=== PATIENT | female | born 1935 | race Caucasian/White ===

== ENCOUNTER 2017-01-02 16:55 | Emergency (ER) | payer OTHER ==
[~2017-01-02] VITALS: Ht 162.6 cm; Wt 51.0 kg
[~2017-01-02 16:55] MED LIST: ASPIRIN81 M2 PO; DIPROSONE 0.05%20 ML LEFT EAR; FISH OIL 1,2001 EAC3 PO; FOLIC ACID1 MG PO; HYDROCODON-ACE1 EAC7 PO; ILOTYCIN1 GM BOTH EYES; LANOXIN,DIG0.0625 MG PO; LANOXIN125 MCG PO; LIPO-FLAVONO1 TABLET PO; LORAZEPAM0.5 MG PO; Levaquin PO; METHOTREXATE2.5 MG PO; MULTIVITAMIN1 EAC2 PO; NITROFURANTOIN100 MG PO; NORVASC5 MG PO; PERCOCET 5/31 TABLET PO; PREDNISONE5 MG PO; TOPROL XL25 MG PO; TOPROL XL50 MG PO; TOPROL XL6.25 MG PO; TRAMADOL HCL50 MG PO; TYLENOL EXTRA500 MG PO; Ultram PO; VITAMIN D250000 UNIT PO; ZANAFLEX4 M1 PO
[2017-01-02 17:30] LABS: HEMATOCRIT 36.9 % (36.0-46.0); MCHC 34.4 G/DL (30.0-36.0); MCV 95.8 FL (83-99); MEAN PLAT.VOLUME 8.5 uM^3 (9.5-12.4); PLATELET COUNT 281 K/uL (156-360); RBC DIS.WIDTH-CV 12.6 % (11.8-14.6); RBC DIS.WIDTH-SD 42.1 % (39-53); RED BLOOD COUNT 3.85 M/uL (3.80-5.20)
[2017-01-02 17:39] LABS: CHLORIDE 108 mEq/L (99-109); POTASSIUM 3.9 mEq/L (3.7-5.4); SODIUM 143 mEq/L (136-147)
[2017-01-02 17:41] LABS: GLUCOSE 103 mg/dL (70-99)
[2017-01-02 17:42] LABS: ANION GAP 10 MEQ/L (2-14)
[2017-01-02 17:45] LABS: GFR ESTIMATE (CALCULATED) > 59 mL/min/
[2017-01-02 17:46] LABS: UREA NITROGEN (BUN) 26 mg/dL (9-23)
[2017-01-02 17:51] LABS: TROP-I INTERPRETATION NEGATIVE; TROPONIN-I < 0.01 ng/mL (0.0-0.30)
[2017-01-02 19:44] VITALS: BP 136/77
== END 2017-01-02 19:57 | disposition home or self-care (01) ==
LOC: EME 16:55
PROVIDERS: Nurse Practitioner Family
DX: M17.12 Unilateral primary osteoarthritis, left knee (principal); M79.89 Other specified soft tissue disorders; Z88.1 Allergy status to other antibiotic agents; Z88.0 Allergy status to penicillin
CPT/HCPCS: 80048; 84484; 85027; 93005; 93971; 99281; 99284

== ENCOUNTER 2017-10-15 18:19 | Observation (INO) | payer OTHER ==
[~2017-10-15] VITALS: Ht 162.6 cm; Wt 50.5 kg
[2017-10-15 19:09] LABS: BASOPHIL COUNT 0.1 K/uL (0-0.1); EOSINOPHIL (%) 0.1 % (0-5); HEMATOCRIT 37.1 % (36.0-46.0); IMMATURE GRANULOCYTE (%) 0.4 % (0.0-0.7); IMMATURE GRANULOCYTE COUNT 0.1 K/uL; INSTRUMENT ABS NEUTROPHIL CT 15.1 K/uL; LYMPHOCYTE COUNT 1.5 K/uL (1.0-2.8); MCH 33.6 PG (29.0-34.0); MCHC 35.3 G/DL (30.0-36.0); MCV 95.1 FL (83-99); MEAN PLAT.VOLUME 8.1 uM^3 (9.5-12.4); MONOCYTE (%) 6.6 % (3-12); MONOCYTE COUNT 1.2 K/uL (0-0.8); NEUTROPHIL (%) 84.4 % (45-76); NEUTROPHIL COUNT 15.1 K/uL (1.8-6.4); PLATELET COUNT 258 K/uL (156-360); RBC DIS.WIDTH-SD 44.3 % (39-53); WHITE BLOOD COUNT 17.9 K/uL (4.1-10.2)
[2017-10-15 19:27] LABS: CHLORIDE 104 mEq/L (99-109); POTASSIUM 3.6 mEq/L (3.7-5.4); SODIUM 138 mEq/L (136-147)
[2017-10-15 19:29] LABS: GLUCOSE 113 mg/dL (70-99)
[2017-10-15 19:30] LABS: ANION GAP 10 MEQ/L (2-14)
[2017-10-15 19:33] LABS: GFR ESTIMATE (CALCULATED) > 59 mL/min/
[2017-10-15 19:34] LABS: UREA NITROGEN (BUN) 20 mg/dL (9-23)
[2017-10-15 21:38] LABS: CREATINE KINASE 281 IU/L (1-294); TOTAL CK 281 IU/L (1-294)
[2017-10-15 21:44] LABS: CK-MB 1.5 ng/mL (0.0-4.9)
[2017-10-15 22:34] LABS: ADD MIUA? NO; BILIRUBIN NEGATIVE; BLOOD NEGATIVE; COLOR YELLOW ((YELLOW)); GLUCOSE (STRIP) NEGATIVE; KETONES 20; LEUKOCYTES NEGATIVE; NITRITE NEGATIVE; PROTEIN (STRIP) NEGATIVE; SPECIFIC GRAVITY 1.014 (1.000-1.030); UROBILINOGEN 0.2 MG/DL (0.2-1.0)
[2017-10-16] MEDS ORDERED: KLOR-CON SPRINK8 MEQ PO (00:04)
[2017-10-16] MEDS ORDERED: IMODIUM PO (00:16)
[2017-10-16] MEDS ORDERED: SALINE NASAL14.1 GM TP (00:29)
[2017-10-16] MEDS ORDERED: LACTAID ULT9000 UNIT PO (00:29)
[2017-10-16] MEDS ORDERED: LIPO-FLAVONO1 TABLET PO (00:42)
[2017-10-16 04:31] VITALS: BP 93/53
[2017-10-16 05:30] VITALS: BP 97/56
[2017-10-16 06:10] LABS: TROP-I INTERPRETATION NEGATIVE; TROPONIN-I < 0.01 ng/mL (0.0-0.30)
[2017-10-16 07:51] VITALS: BP 106/58
[2017-10-16 12:17] VITALS: BP 92/55
[2017-10-16 13:15] LABS: TROP-I INTERPRETATION NEGATIVE; TROPONIN-I < 0.01 ng/mL (0.0-0.30)
[2017-10-16] MEDS ORDERED: LIDODERM 5% P1 PATCH TD (15:36)
[2017-10-16] MEDS ORDERED: TRAMADOL HCL50 MG PO (15:37)
[2017-10-16 17:25] VITALS: BP 103/61
== END 2017-10-16 17:26 | disposition home or self-care (01) ==
LOC: EME 18:19 → 5WEST 10-16 02:10 → EDOF 10-16 02:10 → ENRESERV 10-16 02:17 → 5WEST 10-16 03:38
PROVIDERS: Hospitalist; Physician Assistant
DX: G89.11 Acute pain due to trauma (principal); M54.5 Low back pain; M79.605 Pain in left leg; M25.561 Pain in right knee; M47.896 Other spondylosis, lumbar region; M81.0 Age-related osteoporosis without current pathological fracture; M19.90 Unspecified osteoarthritis, unspecified site; D72.829 Elevated white blood cell count, unspecified; I10 Essential (primary) hypertension; W01.0XXA Fall on same level from slipping, tripping and stumbling without subsequent striking against object, initial encounter; Z91.81 History of falling; Y93.9 Activity, unspecified; Y92.099 Unspecified place in other non-institutional residence as the place of occurrence of the external cause; Z90.49 Acquired absence of other specified parts of digestive tract; Z82.3 Family history of stroke; Z88.0 Allergy status to penicillin; Z88.1 Allergy status to other antibiotic agents; Z88.5 Allergy status to narcotic agent; Z88.8 Allergy status to other drugs, medicaments and biological substances; Z79.82 Long term (current) use of aspirin
CPT/HCPCS: 71010; 72100; 72131; 73502; 80048; 81003; 82550; 82553; 83605; 84484; 85025; 87040; 93005; 94799; 99281; 99285; G0378; G8978 GP CK; G8979 CJ; G8980 GP CK; J1644; J1885; J2270; J2405; J7512